=== PATIENT | male | born 1970 | race African-American/Black ===

== ENCOUNTER 2020-10-17 00:07 | Emergency (ER) | payer OTHER ==
[~2020-10-17] VITALS: Ht 190.5 cm; Wt 85.7 kg
[2020-10-17 00:35] LABS: ABSOLUTE NEUTROPHILS 2.2 thou/uL (1.4-8.2); BASOPHILS 1.1 % (0.0-2.0); EOSINOPHILS 0.9 % (0.0-3.0); HEMATOCRIT 34.7 % (42.0-52.0); HEMOGLOBIN 11.6 gm/dL (14.0-18.0); LYMPHOCYTES 23.1 % (24.0-44.0); MCH 33.6 pg (26.0-34.0); MCHC 33.5 g/dL (28.0-37.0); MCV 100.5 fL (80.0-100.0); MONOCYTES 13.7 % (1.0-8.0); PLATELET COUNT 123 thou/uL (150-400); POLYS 61.2 % (36.0-66.0); RBC 3.45 mil/uL (4.50-6.00); RDW 13.7 % (10.5-14.5); WBC 3.5 thou/uL (4.0-11.0)
[2020-10-17 00:48] LABS: ANION GAP 8 mmol/L (7-16); BUN 15 mg/dL (7-18); CALCIUM 8.4 mg/dL (8.5-10.1); CHLORIDE 105 mmol/L (98-107); CO2 27 mmol/L (21-32); CREATININE 0.9 mg/dL (0.7-1.3); GLUCOSE 115 mg/dL (74-106); POTASSIUM 3.8 mmol/L (3.5-5.1); SODIUM 140 mmol/L (136-145)
[2020-10-17 00:58] LABS: ALBUMIN 3.4 g/dL (3.4-5.0); SGOT 210 U/L (15-37); SGPT 101 U/L (30-65); TOTAL BILIRUBIN 0.3 mg/dL (0.2-1.0); TOTAL PROTEIN 6.6 g/dL (6.4-8.2); TROPONIN-I <0.06 ng/mL (<0.06)
[2020-10-17] MEDS ORDERED: NAPROSYN500 MG PO (02:01)
[2020-10-17 04:43] VITALS: BP 121/79
[2020-10-17] MEDS ORDERED: PEPCID40 MG PO (04:50)
--- NOTE | 2020-10-17 07:25 | EKG ---
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
== END 2020-10-17 06:02 | disposition home or self-care (01) ==
LOC: ER 00:07
PROVIDERS: Emergency Medicine
DX: R07.9 Chest pain, unspecified (principal); F10.10 Alcohol abuse, uncomplicated; Z79.899 Other long term (current) drug therapy; Y90.8 Blood alcohol level of 240 mg/100 ml or more